=== PATIENT | female | born 1955 | race Caucasian/White ===

== ENCOUNTER 2017-10-14 19:25 | Emergency (ER) | payer OTHER ==
[~2017-10-14] VITALS: Ht 185.4 cm; Wt 140.6 kg
[2017-10-14] MEDS ORDERED: VERA80TA2 PO (20:13)
[2017-10-14] MEDS ORDERED: OXYC10TA6 PO (20:13)
[2017-10-14] MEDS ORDERED: MAALOX/HYOSCYAMINE/LIDOCAINE 45 ML BTL ONE (20:18)
[2017-10-14] MEDS ORDERED: SODIUM CHLORIDE FLUSH 10ML SYR IVF ONE (20:30)
[2017-10-14] MEDS ORDERED: MAALOX/HYOSCYAMINE/LIDOCAINE 45 ML BTL PO ONE (20:30)
[2017-10-14] MEDS ORDERED: ASPI-515 PO (20:33)
[2017-10-14] MEDS ORDERED: LANS15CA PO (20:33)
[2017-10-14] MEDS ORDERED: TEMA30CA PO (20:33)
[2017-10-14] MEDS ORDERED: METF500T4 PO (20:33)
[2017-10-14] MEDS ORDERED: CHOL200024 PO (20:33)
[2017-10-14] MEDS ORDERED: DOXA1TAB2 PO (20:33)
[2017-10-14] MEDS ORDERED: GABA300C10 PO (20:33)
[2017-10-14] MEDS ORDERED: BENA1TAB9 PO (20:33)
[2017-10-14 20:45] LABS: BASOPHILS # (AUTO) 0.05 x10^3/uL (0-0.1); BASOPHILS % (AUTO) 1 % (0-1); EOSINOPHILS # (AUTO) 0.12 x10^3/uL (0-0.4); EOSINOPHILS % (AUTO) 2 % (1-7); LYMPHOCYTES # (AUTO) 1.15 x10^3/uL (1-3.4); LYMPHOCYTES % (AUTO) 18 % (22-44); MD NO; MEAN CORPUSCULAR HEMOGLOBIN 29.2 pg (27.0-34.8); MEAN CORPUSCULAR HGB CONC 33.4 g/dL (32.4-35.8); MEAN CORPUSCULAR VOLUME 87.6 fL (80-100); MEAN PLATELET VOLUME 9.2 fL (7.4-10.4); MONOCYTES # (AUTO) 0.34 x10^3/uL (0.2-0.8); MONOCYTES % (AUTO) 6 % (2-9); NEUTROPHILS # (AUTO) 4.61 x10^3/uL (1.8-6.8); NEUTROPHILS % (AUTO) 74 % (42-75); PLATELET COUNT 283 x10^3/uL (130-400); RED BLOOD COUNT 4.22 x10^6/uL (3.82-5.3); RED CELL DISTRIBUTION WIDTH 13.8 % (9.6-15.2)
[2017-10-14 20:55] LABS: INTERNATIONAL NORMALIZED RATIO 0.99 (0.93-1.1); PROTHROMBIN TIME 10.3 Seconds (9.6-11.5)
[2017-10-14 20:57] LABS: ALANINE AMINOTRANSFERASE 30 U/L (12-78); ALBUMIN 3.8 g/dL (3.4-5.0); ANION GAP 8 mmol/L (5-15); CHLORIDE 104 mmol/L (98-107); CREATININE 1.59 mg/dL (0.55-1.02)
[2017-10-14 21:05] LABS: ALKALINE PHOSPHATASE 37 U/L (45-117); BILIRUBIN,TOTAL 0.3 mg/dL (0.2-1.0); TOTAL PROTEIN 7.2 g/dL (6.4-8.2); TROPONIN I < 0.015 ng/mL (0.000-0.045)
[2017-10-14] MEDS ORDERED: MORPHINE SULFATE 4 MG/ML, 1ML IVPush PRN (21:30)
[2017-10-14] MEDS ORDERED: ONDANSETRON 2MG/ML, 2ML IVPush ONE (21:30)
[2017-10-14] MEDS ORDERED: ONDANSETRON 2MG/ML, 2ML ONE (21:33)
[2017-10-14] MEDS ORDERED: MORPHINE SULFATE 4 MG/ML, 1ML ONE (21:33)
[2017-10-14 22:50] VITALS: BP 122/73
== END 2017-10-14 23:28 | disposition home or self-care (01) ==
LOC: ED 22:11
DX: R07.89 Other chest pain (principal); I10 Essential (primary) hypertension; E11.9 Type 2 diabetes mellitus without complications; G89.29 Other chronic pain; K21.9 Gastro-esophageal reflux disease without esophagitis; Z79.84 Long term (current) use of oral hypoglycemic drugs
CPT/HCPCS: 36415; 71045; 80053; 83690; 84484; 85025; 85610; 85730; 93005; 96374; 96375; 99285; J2405